=== PATIENT | female | born 1935 | race Two or more races ===

== ENCOUNTER 2016-07-03 15:28 | Emergency (ER) | payer OTHER ==
[~2016-07-03] VITALS: Ht 152.4 cm; Wt 37.5 kg
[~2016-07-03 15:28] MED LIST: AFRIN,GENASAL D15 ML BOTH NARES; ALBUTEROL SULF8.5 GM IH; ALLEGRA ALLERG180 MG PO; ASPIR 8181 M1 PO; FLOVENT 22120 INHALA IH; LIPITOR40 MG PO; MARTEN-TAB 3251 EACH PO; METOPROLOL TART25 MG PO; NASONEX17 GM BOTH NARES; PRAVASTATIN SOD80 MG PO; PROAIR HFA8.5 GM IH; SERTRALINE HCL25 MG PO; TRIAMCINOLONE A15 G2 TP; TYLENOL ARTHRI650 MG PO; VAGISIL CREAM28 GM TP
[2016-07-03 16:21] LABS: HEMATOCRIT 35.7 % (36.0-46.0); MCH 28.4 PG (29.0-34.0); MCHC 31.9 G/DL (30.0-36.0); MEAN PLAT.VOLUME 10.5 uM^3 (9.5-12.4); PLATELET COUNT 238 K/uL (156-360); RBC DIS.WIDTH-SD 41.5 % (39-53); RED BLOOD COUNT 4.01 M/uL (3.80-5.20); WHITE BLOOD COUNT 8.2 K/uL (4.1-10.2)
[2016-07-03 16:32] LABS: CHLORIDE 108 mEq/L (99-109); POTASSIUM 4.2 mEq/L (3.7-5.4); SODIUM 143 mEq/L (136-147)
[2016-07-03 16:33] LABS: GLUCOSE 97 mg/dL (70-99)
[2016-07-03 16:35] LABS: ANION GAP 9 MEQ/L (2-14)
[2016-07-03 16:37] LABS: GFR ESTIMATE (CALCULATED) 51 mL/min/
[2016-07-03 16:38] LABS: UREA NITROGEN (BUN) 21 mg/dL (9-23)
[2016-07-03 16:42] LABS: TROP-I INTERPRETATION NEGATIVE; TROPONIN-I 0.01 ng/mL (0.0-0.30)
[2016-07-03 18:18] LABS: D-DIMER ELISA 0.38 mg/L FEU (< 0.57)
[2016-07-03 19:03] VITALS: BP 137/66
== END 2016-07-03 19:01 | disposition home or self-care (01) ==
LOC: EME 15:28
PROVIDERS: Emergency Medicine
DX: R07.89 Other chest pain (principal); J45.909 Unspecified asthma, uncomplicated; E78.5 Hyperlipidemia, unspecified; R73.03 Prediabetes; Z79.82 Long term (current) use of aspirin
CPT/HCPCS: 71020; 80048; 84484; 85027; 85379; 93005; 99281; 99284